=== PATIENT | male | born 1960 | race Caucasian/White ===

== ENCOUNTER 2021-07-24 17:02 | Emergency (ER) | payer MEDICARE ==
[~2021-07-24 17:02] MED LIST: AUGMENTIN 875-1 EACH PO; COUMADIN7.5 MG PO; VIBRAMYCIN100 MG PO
[2021-07-24] MEDS ORDERED: LEVOFLOXACIN500 MG PO (21:44)
[2021-07-24] MEDS ORDERED: VIBRAMYCIN 100100 MG PO (21:44)
== END 2021-07-24 22:22 | disposition home or self-care (01) ==
LOC: ER1 17:02
PROVIDERS: Physician Assistant
DX: S91.331A Puncture wound without foreign body, right foot, initial encounter (principal); I50.9 Heart failure, unspecified; N18.9 Chronic kidney disease, unspecified; E11.22 Type 2 diabetes mellitus with diabetic chronic kidney disease; E11.40 Type 2 diabetes mellitus with diabetic neuropathy, unspecified; Z90.49 Acquired absence of other specified parts of digestive tract; Z79.899 Other long term (current) drug therapy; F17.200 Nicotine dependence, unspecified, uncomplicated; X58.XXXA Exposure to other specified factors, initial encounter; Z23 Encounter for immunization
CPT/HCPCS: 73630; 80048; 85610; 90471; 90715; 99283

== ENCOUNTER 2022-03-22 16:03 | Emergency (ER) | payer OTHER ==
[~2022-03-22 16:03] MED LIST changes: +LEVOFLOXACIN500 MG PO; +VIBRAMYCIN 100100 MG PO
[2022-03-22 17:34] LABS: HEMOGLOBIN 10.9 gm/dl (14.0-17.5); RED BLOOD COUNT 3.72 M/UL (4.20-5.50)
[2022-03-22] MEDS ORDERED: CEPHALEXIN500 MG PO (23:38)
[2022-03-22] MEDS ORDERED: DOXYCYCLINE HY100 MG PO (23:38)
== END 2022-03-23 01:25 | disposition home or self-care (01) ==
LOC: ER1 16:03
PROVIDERS: Nurse Practitioner
DX: L03.116 Cellulitis of left lower limb (principal); I13.10 Hypertensive heart and chronic kidney disease without heart failure, with stage 1 through stage 4 chronic kidney disease, or unspecified chronic kidney disease; E11.22 Type 2 diabetes mellitus with diabetic chronic kidney disease; N18.9 Chronic kidney disease, unspecified; I25.2 Old myocardial infarction; E78.5 Hyperlipidemia, unspecified; F17.210 Nicotine dependence, cigarettes, uncomplicated; Z79.01 Long term (current) use of anticoagulants
CPT/HCPCS: 73620; 73700; 80053; 81001; 85025; 85652; 86140; 96374; 96375; 99284; J2543; J3370

== ENCOUNTER 2022-04-16 23:47 | Inpatient (IN) | payer OTHER ==
[~2022-04-16] VITALS: Ht 175.3 cm; Wt 108.9 kg
[~2022-04-16 23:47] MED LIST changes: +CEPHALEXIN500 MG PO; +DOXYCYCLINE HY100 MG PO
[2022-04-17 01:58] LABS: HEMOGLOBIN 10.8 gm/dl (14.0-17.5); RED BLOOD COUNT 3.7 M/UL (4.20-5.50); WHITE BLOOD COUNT 12.1 K/UL (4.5-11.0)
[2022-04-17] MEDS ORDERED: NESINA6.25 MG PO (11:28)
[2022-04-17] MEDS ORDERED: AMLODIPINE BESY10 MG PO (11:28)
[2022-04-17] MEDS ORDERED: ELIQUIS5 MG PO (11:29)
[2022-04-17] MEDS ORDERED: CARVEDILOL25 MG PO (11:29)
[2022-04-17] MEDS ORDERED: CEPHALEXIN500 MG PO (11:29)
[2022-04-17] MEDS ORDERED: FUROSEMIDE80 MG PO (11:30)
[2022-04-17] MEDS ORDERED: VITAMIN D325 MCG PO (11:30)
[2022-04-17] MEDS ORDERED: METHYLPREDNISOLO4 M1 PO (11:31)
[2022-04-17] MEDS ORDERED: GLIPIZIDE10 MG PO (11:31)
[2022-04-17] MEDS ORDERED: GABAPENTIN300 MG PO (11:31)
[2022-04-17] MEDS ORDERED: [UNRECOGNIZED DRUG - OTHER] TOP (11:32)
[2022-04-17] MEDS ORDERED: TERBINAFINE HC250 MG PO (11:33)
[2022-04-18 03:22] LABS: RED BLOOD COUNT 3.45 M/UL (4.20-5.50)
[2022-04-19 05:15] LABS: HEMOGLOBIN 10.1 gm/dl (14.0-17.5); RED BLOOD COUNT 3.54 M/UL (4.20-5.50); WHITE BLOOD COUNT 9.4 K/UL (4.5-11.0)
[2022-04-19 12:08] LABS: HBSAG SCREEN Negative (Negative); HCV AB 0.1 (0.0-0.9); HEP B CORE AB, TOT Negative (Negative)
[2022-04-20 06:21] LABS: RED BLOOD COUNT 3.12 M/UL (4.20-5.50); WHITE BLOOD COUNT 7.6 K/UL (4.5-11.0)
[2022-04-20 15:10] LABS: ANTI-DSDNA ANTIBODIES <1 IU/mL (0-9)
[2022-04-20 16:10] LABS: ANTISTREPTOLYSIN O AB 290.8 IU/mL (0.0-200.0); COMPLEMENT C3, SERUM 189 mg/dL (82-167); COMPLEMENT C4, SERUM 38 mg/dL (12-38)
[2022-04-21 03:26] LABS: HEMOGLOBIN 8.6 gm/dl (14.0-17.5); RED BLOOD COUNT 2.97 M/UL (4.20-5.50); WHITE BLOOD COUNT 8.1 K/UL (4.5-11.0)
[2022-04-21] MEDS ORDERED: AMLODIPINE BESYL5 MG PO (11:08)
[2022-04-21 13:11] LABS: A/G RATIO 0.9 (0.7-1.7); ALBUMIN 3.1 g/dL (2.9-4.4); ALPHA-1-GLOBULIN 0.2 g/dL (0.0-0.4); ALPHA-2-GLOBULIN 1.1 g/dL (0.4-1.0); BETA GLOBULIN 0.9 g/dL (0.7-1.3); GAMMA GLOBULIN 1.3 g/dL (0.4-1.8); GLOBULIN, TOTAL 3.5 g/dL (2.2-3.9); IMMUNOFIXATION RESULT, SERUM Comment: (.); IMMUNOGLOBULIN A, QN, SERUM 257 mg/dL (90-386); IMMUNOGLOBULIN G, QN, SERUM 1332 mg/dL (603-1613); IMMUNOGLOBULIN M, QN, SERUM 182 mg/dL (20-172); M-SPIKE Not Observed g/dL (Not Observed); PROTEIN, TOTAL, SERUM 6.6 g/dL (6.0-8.5)
[2022-04-21 16:12] LABS: ATYPICAL PANCA <1:20 titer (Neg:<1:20); PERINUCLEAR (P-ANCA) <1:20 titer (Neg:<1:20)
[2022-04-22] MEDS ORDERED: ZYVOX600 MG PO (11:47)
[2022-04-22] MEDS ORDERED: LEVOFLOXACIN750 MG PO (11:47)
[2022-04-23] MEDS ORDERED: CATAPRES 0.1MG0.1 MG PO (11:16)
[2022-04-23] MEDS ORDERED: LEVOFLOXACIN750 MG PO (11:16)
== END 2022-04-23 16:30 | disposition home or self-care (01) | DRG 299 ==
LOC: ER1 23:47 → CDU 04-17 08:33 → MED SURG 4 04-17 08:33
PROVIDERS: Internal Medicine Nephrology; Physician Assistant Medical; ADMIT Internal Medicine
DX: E11.52 Type 2 diabetes mellitus with diabetic peripheral angiopathy with gangrene (principal); A48.0 Gas gangrene; N17.9 Acute kidney failure, unspecified; L03.032 Cellulitis of left toe; Z20.822 Contact with and (suspected) exposure to COVID-19; N18.32 Chronic kidney disease, stage 3b; I12.9 Hypertensive chronic kidney disease with stage 1 through stage 4 chronic kidney disease, or unspecified chronic kidney disease; E87.5 Hyperkalemia; E78.5 Hyperlipidemia, unspecified; D63.1 Anemia in chronic kidney disease; E11.621 Type 2 diabetes mellitus with foot ulcer; F17.210 Nicotine dependence, cigarettes, uncomplicated; I25.10 Atherosclerotic heart disease of native coronary artery without angina pectoris; Z95.5 Presence of coronary angioplasty implant and graft; Z86.718 Personal history of other venous thrombosis and embolism; Z79.01 Long term (current) use of anticoagulants; Z90.49 Acquired absence of other specified parts of digestive tract; Z83.3 Family history of diabetes mellitus; Z80.9 Family history of malignant neoplasm, unspecified
CPT/HCPCS: 36415; 73630; 73718; 80048; 80053; 80202; 82550; 82553; 82570; 82784; 82962; 83520; 83605; 83735; 83880; 83883; 83970; 84100; 84155; 84156; 84165; 85025; 85027; 85610; 85652; 86038; 86060; 86140; 86160; 86162; 86225; 86256; 86334; 86704; 86706; 86708; 86803; 87040; 87070; 87077; 87186; 87205; 87340; 89050; 93925; 96365; 97110; 97116; 97161; 97166; 97535; 99284; J0360; J2185; J2270; J2543; J3370; J7070; P9047

== ENCOUNTER 2022-07-21 05:20 | Observation (INO) | payer OTHER ==
[~2022-07-21 05:20] MED LIST changes: +AMLODIPINE BESY10 MG PO; +AMLODIPINE BESYL5 MG PO; +CARVEDILOL25 MG PO; +CATAPRES 0.1MG0.1 MG PO; +ELIQUIS5 MG PO; +FUROSEMIDE40 MG PO; +GABAPENTIN300 MG PO; +GLIPIZIDE10 MG PO; +LEVOFLOXACIN750 MG PO; +METHYLPREDNISOLO4 M1 PO; +NESINA6.25 MG PO; +TERBINAFINE HC250 MG PO; +VITAMIN D325 MCG PO; +ZYVOX600 MG PO; +[UNRECOGNIZED DRUG - OTHER] TOP
[2022-07-21 05:44] LABS: RED BLOOD COUNT 3.29 M/UL (4.20-5.50); WHITE BLOOD COUNT 7.5 K/UL (4.5-11.0)
[2022-07-21] MEDS ORDERED: ROXICODONE TAB 55 MG PO (11:00)
[2022-07-21] MEDS ORDERED: CLOPIDOGREL75 MG PO (11:01)
[2022-07-21] MEDS ORDERED: FOLIC ACID1 MG PO (11:01)
[2022-07-21] MEDS ORDERED: ROBAXIN 750 MG750 MG PO (11:02)
[2022-07-21] MEDS ORDERED: LANTUS100 UNIT/1 SQ (11:02)
[2022-07-21] MEDS ORDERED: MIRALAX17 GM PO (11:03)
[2022-07-21] MEDS ORDERED: LOKELMA5 GM PO (11:03)
[2022-07-21] MEDS ORDERED: SENNA LAX8.6 MG PO (11:04)
[2022-07-21] MEDS ORDERED: FISH OIL 1,0001 EACH PO (11:05)
[2022-07-21] MEDS ORDERED: LIPITOR20 MG PO (11:05)
[2022-07-21] MEDS ORDERED: TYLENOL325 MG PO (11:06)
[2022-07-21] MEDS ORDERED: OMEPRAZOLE20 MG PO (11:06)
[2022-07-21] MEDS ORDERED: AMLODIPINE BESY10 MG PO (11:06)
[2022-07-21] MEDS ORDERED: ASPIRIN EC81 MG PO (11:07)
[2022-07-21] MEDS ORDERED: NOVOLOG100 UNIT/2 SQ (11:08)
[2022-07-21] MEDS ORDERED: GENTLE LAXATIVE5 M1 PO (11:08)
== END 2022-07-21 16:42 | disposition left against medical advice (07) ==
LOC: ER1 05:20 → CDU 06:36
PROVIDERS: Family Medicine; ADMIT Internal Medicine
DX: R07.89 Other chest pain (principal); N17.9 Acute kidney failure, unspecified; I12.9 Hypertensive chronic kidney disease with stage 1 through stage 4 chronic kidney disease, or unspecified chronic kidney disease; E11.22 Type 2 diabetes mellitus with diabetic chronic kidney disease; N18.4 Chronic kidney disease, stage 4 (severe); E11.40 Type 2 diabetes mellitus with diabetic neuropathy, unspecified; J44.9 Chronic obstructive pulmonary disease, unspecified; I25.10 Atherosclerotic heart disease of native coronary artery without angina pectoris; Z53.29 Procedure and treatment not carried out because of patient's decision for other reasons; Z72.0 Tobacco use
CPT/HCPCS: 71045; 80053; 82550; 82553; 82962; 83036; 84484; 85025; 85610; 93005; 96374; 99285; G0378; J2270